=== PATIENT | male | born 1970 | race Asian ===

== ENCOUNTER 2019-08-14 07:17 | Outpatient (CLI) | payer OTHER ==
[~2019-08-14 07:17] MED LIST: CLEOCIN HCL300 MG PO; KETO10TA2 PO; PEPCID AC20 MG PO; ULTRACET PO
== END 2019-08-14 07:28 | disposition home or self-care (01) ==
LOC: LAB 07:17
DX: E11.8 Type 2 diabetes mellitus with unspecified complications (principal); I10 Essential (primary) hypertension; N40.0 Benign prostatic hyperplasia without lower urinary tract symptoms

== ENCOUNTER 2020-02-13 10:02 | Outpatient (CLI) | payer OTHER | END 2020-02-13 10:12 | disposition home or self-care (01) | LOC: LAB 10:02 | PROVIDERS: ATTEND General Practice | DX: N40.0 Benign prostatic hyperplasia without lower urinary tract symptoms (principal); I10 Essential (primary) hypertension; E11.69 Type 2 diabetes mellitus with other specified complication ==

== ENCOUNTER 2021-05-10 10:57 | Outpatient (CLI) | payer OTHER | END 2021-05-10 10:58 | disposition home or self-care (01) | LOC: RAD 10:57 | PROVIDERS: ATTEND General Practice | DX: M79.671 Pain in right foot (principal); M77.31 Calcaneal spur, right foot ==

== ENCOUNTER → 2023-07-14 09:12 | Outpatient (CLI) | payer OTHER ==
[2023-07-14 10:39] LABS: PH,URINE 5.5 (5.0-8.0); URINE APPEARANCE Clear; URINE BILIRRUBIN Negative (NEGATIVE); URINE BLOOD Moderate; URINE COLOR Yellow; URINE GLUCOSE Negative (NEGATIVE); URINE LEUKOCYTE Negative; URINE NITRATE Negative; URINE PROTEIN Negative (NEGATIVE); URINE UROBILINOGEN 0.2 E.U./dl
[2023-07-14 10:44] LABS: URINE EPITHELIAL CELLS 1.5 uL (0.0-38.8)
[2023-07-14 10:45] LABS: HEMATOCRIT 43.8 % (39.0-48.0); HEMOGLOBIN 15.1 g/dL (13-16.00); MEAN CELL VOLUME 85.9 fL (80.0-100.00); MEAN CORPUSCULAR HEMOGLOBIN 29.6 pg (27.00-32.0); MEAN CORPUSCULAR HGB CONC 34.5 g/dl (32.0-36.0); PLATELET COUNT 213 K/uL (150-450); RED BLOOD COUNT 5.09 M/uL (4.00-6.00); RED CELL DISTRIBUTION WIDTH 14.1 % (11.5-14.5)
[2023-07-14 10:50] LABS: URINE BACTERIA 3.7 uL (0.0-1933); URINE WBC 1.6 uL (0.0-23.2)
[2023-07-14 11:16] LABS: ALBUMIN 4.3 gm/dL (3.4-5.0); BILIRUBIN TOTAL 0.53 mg/dL (0.3-1.2); CALCIUM 9.2 mg/dL (8.5-10.1); CHOL HDL RATIO 4.1 (0-5.0); CREATININE SERUM 1.06 mg/dL (0.70-1.30); GFR 73.36; GLOBULINA 3.3 G/DL (2.4-3.5); POTASSIUM 4.34 mEq/L (3.5-5.1); PROSTATIC SPECIFIC ANTIGEN 1.02 NG/ML (0.010-4.00); T4 FREE 0.81 NG/ML (0.76-1.46); TOTAL PROTEIN 7.6 gm/dL (6.4-8.2); TSH 2.13 uIU/mL (0.358-3.74)
== END | disposition home or self-care (01) ==
LOC: LAB 09:12
PROVIDERS: ATTEND General Practice
DX: E11.8 Type 2 diabetes mellitus with unspecified complications (principal); I10 Essential (primary) hypertension; E55.9 Vitamin D deficiency, unspecified; N40.0 Benign prostatic hyperplasia without lower urinary tract symptoms

== ENCOUNTER 2025-01-27 10:43 | Outpatient (CLI) | payer OTHER ==
[2025-01-27 12:23] LABS: ALBUMIN 4.4 gm/dL (3.4-5.0); BILIRUBIN TOTAL 0.72 mg/dL (0.3-1.2); CALCIUM 9.3 mg/dL (8.5-10.1); CREATININE SERUM 1.12 mg/dL (0.70-1.30); GFR 68.58; GLOBULINA 3.4 G/DL (2.4-3.5); POTASSIUM 4.18 mEq/L (3.5-5.1); TOTAL PROTEIN 7.8 gm/dL (6.4-8.2)
== END 2025-01-27 10:51 | disposition home or self-care (01) ==
LOC: LAB 10:43
DX: D68.9 Coagulation defect, unspecified (principal); Z01.812 Encounter for preprocedural laboratory examination; Z13.6 Encounter for screening for cardiovascular disorders; E78.00 Pure hypercholesterolemia, unspecified